=== PATIENT | male | born 1945 | race Caucasian/White ===

== ENCOUNTER 2017-05-28 06:30 | Day surgery (SDC) | payer MEDICARE, BC ==
[2017-05-26 10:21] VITALS: BMI 26.6
[~2017-05-28 06:30] MED LIST: LACTATED RINGERS 1,000 ML IV SCH; LIDOCAINE 1% 20 ML VIAL (10MG/ML) FOR IV START INTRADERMA PRN
[2017-05-28 06:48] VITALS: TEMP 97.9
[2017-05-28 06:51] LABS: Glucose,Whole Blood 106 mg/dL (75-99)
[2017-05-28] MEDS ORDERED: PROPOFOL 10 MG/ML 20 ML VIAL IV ONE (07:10)
--- NOTE | 2017-05-28 07:29 | P.PCN ---
Date of Procedure: 05/28/17 Preoperative Diagnosis: Postoperative Diagnosis: Procedure(s) Performed: BRIEF HISTORY: Patient is a 71-year-old pleasant white male, scheduled for an elective colonoscopy as a part of evaluation of intermittent rectal bleeding for the last 6 months duration. PROCEDURE PERFORMED: Colonoscopy. PREOPERATIVE DIAGNOSIS: Rectal bleeding. IV sedation per Anesthesia. PROCEDURE: After informed consent was obtained, the patient, was brought into the endoscopy unit. IV sedation was administered by Anesthesia under continuous monitoring. Digital rectal examination was normal. Initially the Olympus CF- 160 flexible video pediatric colonoscope was then inserted in the rectum, gradually advanced into the cecum without any difficulty. Careful examination was performed as the scope was gradually being withdrawn. Ileocecal valve and the appendiceal orifice were visualized and appeared normal. Prep was excellent. Mucosa of the cecum, ascending colon, transverse colon, descending colon, sigmoid colon, and rectum appeared normal. Diffuse diverticulosis noted throughout the entire colon but more predominant in the left colon. Retroflexion was performed in the rectum and small internal hemorrhoids were seen. The patient tolerated the procedure well. IMPRESSION: Normal-appearing colon from rectum to cecum with no evidence of colorectal neoplasia . Diffuse diverticulosis Small internal hemorrhoids. RECOMMENDATIONS: Findings of this examination were discussed with the patient as well as his family. He was advised to be a high-fiber diet, take fiber supplements on a regular basis and avoid straining and constipation. He can have a repeat screening colonoscopy in 10 years. Implants: Indications for Procedure: Operative Findings: Description of Procedure:
[2017-05-28 07:49] VITALS: RESP 16
[2017-05-28 08:03] VITALS: BP 133/79; PULSE 68
== END 2017-05-28 08:31 | disposition home or self-care (01) ==
LOC: ORWHC2ENDO 06:30
PROVIDERS: ATTEND Internal Medicine Gastroenterology
DX: K57.30 Diverticulosis of large intestine without perforation or abscess without bleeding (principal); K64.8 Other hemorrhoids; K21.9 Gastro-esophageal reflux disease without esophagitis; I10 Essential (primary) hypertension; E11.9 Type 2 diabetes mellitus without complications; Z79.84 Long term (current) use of oral hypoglycemic drugs; Z79.899 Other long term (current) drug therapy
CPT/HCPCS: 45378; J2704

== ENCOUNTER → 2021-08-06 | Outpatient (CLI) | payer MEDICARE ==
--- NOTE | 2021-08-06 14:31 | ECHOF ---
Referral Reason:R06.09 MEASUREMENTS -------- HEIGHT: 172.7 cm WEIGHT: 81.6 kg BP: IVSd: 1.0 cm (0.6 - 1.1) LVIDd: 4.4 cm (3.9 - 5.3) LVPWd: 1.0 cm (0.6 - 1.1) IVSs: 1.4 cm LVIDs: 3.3 cm LVPWs: 2.1 cm LAESV Index (A-L): 25.94 ml/m Ao Diam: 3.3 cm (2.0 - 3.7) AV Cusp: 1.8 cm (1.5 - 2.6) MV EXCURSION: 22.213 mm (> 18.000) MV EF SLOPE: 171 mm/s (70 - 150) EPSS: 0.5 cm MV E Justo: 0.94 m/s MV DecT: 247 ms MV A Justo: 1.06 m/s MV E/A Ratio: 0.88 RAP: 5.00 mmHg RVSP: 30.53 mmHg FINDINGS -------- Undetermined rhythm. This was a technically good study. The left ventricular size is normal. Left ventricular wall thickness is normal. Overall left vent ricular systolic function is mildly impaired with, an EF between 45 - 50 %. The right ventricle is normal in size. Normal LA size by volume 22+/-6 ml/m2. The right atrial size is normal. There is mild aortic valve sclerosis. There is no evidence of aortic regurgitation. Mild mitral annular calcification present. Mild mitral regurgitation is present. Mild tricuspid regurgitation present. Right ventricular systolic pressure is normal at < 35 mmHg. There is no pulmonic regurgitation present. There is no pericardial effusion. CONCLUSIONS -------- 1. The left ventricular size is normal. 2. Left ventricular wall thickness is normal. 3. Overall left ventricular systolic function is mildly impaired with, an EF between 45 - 50 %. 4. The right ventricle is normal in size. 5. Normal LA size by volume 22+/-6 ml/m2. 6. The right atrial size is normal. 7. There is mild aortic valve sclerosis. 8. Mild mitral annular calcification present. 9. Mild mitral regurgitation is present. 10. Mild tricuspid regurgitation present. 11. There is no pericardial effusion. LATHE TURNER: Bere Pulliam RDCS
--- NOTE | 2021-08-06 14:48 | CT ---
EXAMINATION TYPE: CT chest wo con DATE OF EXAM: 08/06/2021 COMPARISON: Prior chest x-ray February 15, 2014 HISTORY: Respiratory distress, breathing difficulty CT DLP: 584 mGycm. Automated Exposure Control for Dose Reduction was Utilized. TECHNIQUE: CT scan of the thorax is performed without IV contrast. FINDINGS: LUNGS: There is 2.9 cm thin-walled cyst or bleb in the lateral right lung base on axial image 48. Mil d central bronchiectasis without abnormal peribronchial wall thickening. No suspicious focal consolid ation or groundglass opacity. There is no pleural effusion or pneumothorax seen. The tracheobronchia l tree is patent. MEDIASTINUM: Lack of IV contrast is noted to limit evaluation for mediastinal and especially hilar ad enopathy. There are no definitive greater than 1 cm mediastinal lymph nodes. No cardiomegaly or per icardial effusion is seen. There is 2.3 cm right thyroid nodule axial image 4 which warrants follow-u p. Moderate to severe three-vessel coronary artery calcification and/or stents, correlate clinically. Prominent right and left pulmonary arteries, CT finding consistent with underlying pulmonary artery hypertension. Ectatic ascending aorta up to 3.9 cm axial image 27 OTHER: Large calculi within the gallbladder extending towards gallbladder neck without biliary dilata tion or surrounding inflammatory change. Immediately inferior and just lateral and posterior to this structure there is a 3.4 x 2.7 cm oval low dense structure suspect partially exophytic thin-walled cy st from the inferior right hepatic lobe as this does not appear to connect to the biliary system. Rob e cortical thinning in both kidneys. IMPRESSION: 1. Mild chronic changes without acute pulmonary process. 2. There is 2.3 cm right thyroid low dense nodule. Follow-up thyroid ultrasound is advised to better evaluate and characterize if this is not known finding. 3. 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 4. Multiple stones within gallbladder extending towards neck without CT evidence for acute cholecysti tis.
== END | disposition home or self-care (01) ==
LOC: RADCTMAIN 13:30
PROVIDERS: ATTEND Family Medicine
DX: I08.1 Rheumatic disorders of both mitral and tricuspid valves (principal); I77.810 Thoracic aortic ectasia
CPT/HCPCS: 71250; 93306

== ENCOUNTER → 2021-10-03 | Outpatient (CLI) | payer MEDICARE ==
--- NOTE | 2021-10-03 08:43 | US ---
EXAMINATION TYPE: US thyroid st tissue head/neck DATE OF EXAM: 10/03/2021 COMPARISON: CT 08/06/21 CLINICAL HISTORY: E04.2 NONTOXIC MULTINODULAR GOITER. GLAND SIZE: Right Lobe: 4.7x2.4x2.4 cm Overall Parenchyma: homogenous Left Lobe: 3.2x0.9x1.7 cm Overall Parenchyma: homogeneous Isthmus Thickness: 0.4 cm NODULES RIGHT: # of nodules measured on right: 1 1. 2.8 X 1.9 x 1.9 cm, mid lateral, solid or almost completely solid, hypoechoic nodule, which is w ider than tall, with smooth margins, without echogenic foci. LEFT: # of nodules measured on left: 1 1. 0.4 X 0.5 x 0.3 cm, mid mid, spongiform, hypoechoic nodule, which is wider than tall, with yee h margins, without echogenic foci. ISTHMUS: # of nodules measured in the isthmus: 0 Bilateral neck scanned, no evidence of lymphadenopathy. IMPRESSION: Bilateral thyroid nodules, as described. 2017 ACR TI-RADS LEVEL: TR-RADS 4 - Moderately Suspicious: Follow if > 1 cm, FNA if > 1.5 cm *Highest TI-RADS level nodule reported
[2021-10-03 09:45] LABS: T4, Free (Free Thyroxine) 1.14 ng/dL (0.78-2.19)
== END | disposition home or self-care (01) ==
LOC: RADUSWWP 07:35
PROVIDERS: ATTEND Internal Medicine Endocrinology, Diabetes & Metabolism
DX: E04.2 Nontoxic multinodular goiter (principal)
CPT/HCPCS: 36415; 76536; 84439; 84443

== ENCOUNTER → 2021-10-15 | Outpatient (CLI) | payer MEDICARE ==
--- NOTE | 2021-10-15 21:42 | CONS ---
CONSULTATION DATE OF SERVICE: 10/15/2021 This 75-year-old gentleman has been evaluated in Sleep Center for possible obstructive sleep apnea-hypopnea syndrome. HISTORY OF PRESENT ILLNESS/SLEEP-WAKE EVALUATION: Patient's usual sleep schedule is from 11 p.m. to 5 a.m. No problems with falling asleep. No TV in bedroom. According to the patient's , he snores and wakes up from sleep with nocturia. No history of hypnagogic hallucinations, sleep paralysis or cataplexy. [place] Sleepiness Scale is 5. The patient drinks one cup of coffee a day and usually does not take naps. The patient has restless leg symptoms and has cramps in his legs during sleep. PAST MEDICAL HISTORY: Positive for hypertension, hyperlipidemia, diabetes mellitus, acid reflux, prostate carcinoma. PAST SURGICAL HISTORY: Prostatectomy for prostate carcinoma. MEDICATIONS: 1. Pravastatin 40 mg once a day. 2. Hydrochlorothiazide/lisinopril 25 mg-20 mg once a day. 3. Nifedipine 60 mg once a day. 4. Klor-Con 20 mEq twice a day. 5. Metformin 1000 mg once a day. 6. Pioglitazone 30 mg once a day. 7. Vitamin D3 once a day. 8. Multivitamins. SOCIAL HISTORY: Negative for smoking. Alcohol consumption occasional. FAMILY HISTORY: Positive for sleep apnea in his family -- in his dad, sister and brother. Stroke. Arthritis. REVIEW OF SYSTEMS: Snoring awakenings from sleep. No fevers. No double vision. No recent chest pain. No shortness of breath. No abdominal pain. No bleeding episodes. No blood in the urine. No seizure episodes. PHYSICAL EXAMINATION: GENERAL APPEARANCE: Pleasant gentleman without distress. VITAL SIGNS: BP 115/76, HR 88, RR 15, height 5 feet 7-1/3 inches, weight 184.8 pounds, body mass index 29.1. Temperature 97.3. Oxygen saturation at room air 96%. HEENT: PERRLA, EOMI, evaluation of oropharynx showed tongue protrudes midline. Extremely low position of soft palate; Mallampati IV. NECK: Supple, no JVD. Thyroid is not palpable. Neck measures 16 inches in circumference. LUNGS: Clear to percussion and to auscultation. Good air exchange. No wheezing or rhonchi. HEART: S1, S2 regular. No murmurs, gallops, or rubs. ABDOMEN: Soft and nontender. Bowel sounds are present. No organomegaly appreciated. EXTREMITIES: No clubbing or cyanosis. DIGITAL PHOTOGRAPHER: Awake, alert, and oriented X3. Cranial nerves 2 to 7 intact. There is no fasciculation or atrophy. noted. No focal deficits observed. IMPRESSION: 1. Snoring, extremely low position of soft palate; possible obstructive sleep apnea- hypopnea syndrome. 2. Overweight, body mass index 29.1. 3. History of cramps in legs during the night; possibly periodic limb movements and restless leg symptoms. 4. Hypertension. 5. Diabetes mellitus. 6. Hyperlipidemia. 7. Acid reflux. 8. History of prostate carcinoma, status post prostatectomy. PLAN: 1. Polysomnography for evaluation of patient's breathing during sleep. 2. CPAP/BiPAP titration if sleep study confirms obstructive sleep apnea-hypopnea syndrome. 3. Preferable position during sleep on the side. 4. No driving if patient feels any sleepiness. 5. I will see patient for follow up visit to explain results of testing and following plan. Thank you very much for referring this patient for consultation. Sincerely, Juan Lopez MD, PhD, FAASM Diplomat of [employer] Sleep Medicine Board of [employer] [facility] [employer] [place] MMODL / VALN: [id number] /
== END ==
LOC: SLEEP 14:59
PROVIDERS: ATTEND Internal Medicine
DX: R06.83 Snoring (principal); E66.3 Overweight; I10 Essential (primary) hypertension; E11.9 Type 2 diabetes mellitus without complications; E78.5 Hyperlipidemia, unspecified; K21.9 Gastro-esophageal reflux disease without esophagitis; Z85.46 Personal history of malignant neoplasm of prostate; Z68.29 Body mass index [BMI] 29.0-29.9, adult; Z90.79 Acquired absence of other genital organ(s); Z79.84 Long term (current) use of oral hypoglycemic drugs; Z79.899 Other long term (current) drug therapy
CPT/HCPCS: 99211

== ENCOUNTER → 2022-06-04 | Outpatient (CLI) | payer MEDICARE ==
--- NOTE | 2022-06-04 15:45 | P.PN ---
Subjective DATE: 06/04/2022 FOLLOW UP VISIT. Patient with obstructive sleep apnea hypopnea syndrome return to sleep center for follow-up visit. Information from previous visit have been reviewed. During previous visit apnea-hypopnea index reading from the machine significantly increased to 12.8, including central index of 7.3 and machine indicate possibility of Ehsan-Winn respiration for 7% of the time. Patient is using PAP equipment every night for the whole night, getting PAP supplies in time. The patient does have significant problems with the mask, exhale port on the mask aloud air goes to the eye area. [place] sleepiness scale is 6. I checked information from PAP unit. PAP unit pressure 518, average 11.2 cm H2O. Usage is 100% and 80 % for more then 4 hours, average 5 follow-up 5 hours 17 minutes per night. Leak is 15.4 l/m, which is in acceptable range. Apnea Hypopnea Index is reduced: comparing with a previous visit to 5.0, which is normal. MEDICATIONS:1. Pravastatin 40 mg once a day 2. Hydrochlorothiazide lisinopril once a day 3. Nifedipin 60 mg once a day 4. Metformin 1000 mg once a day 5. Pioglitazone 30 mg once a day During physical exam: GENERAL: A pleasant patient without any distress. VITAL SIGNS: BP 113/69, HR 72, RR 14 , weight 180.4, temperature 97.1, oxygen saturation at room air 97 % . HEENT: PERRLA, EOMI.low position of soft palate, Mallapati[ 4] . NECK: Supple. No JVD. LUNGS: Clear to percussion and to auscultation. Good air exchange. No wheezing or rhonchi. HEART: S1, S2 regular. ABDOMEN: Soft and nontender. EXTREMITIES: No clubbing or cyanosis. PATHOLOGY COLLECTOR: Awake, alert, and oriented x3. No focal deficit. Impressions: 1. Obstructive and central sleep apnea-hypopnea syndrome. Patient demonstrated great compliance with treatment, benefiting from treatment. Improvements of respiration on CPAP comparing with previous visit. 2. Hypertension. 3. Diabetes mellitus. 4. History of cramps in the legs. 5. . Hyperipidemia. 6. Acid Reflux. 7. H/o prostate carcinoma, status post prostatectomy. Plan: 1. Continue using PAP equipment every night for the whole night. 2. To change air filter at least 1-2 times per month. 3. PAP unit should stay lower then position of the head. 4. Advised patient to remove all remaining water from humidifier canister daily and make it dry after each usage. Refill canister with fresh distilled water before each usage. 5. Sleep hygiene with regular time in bed for at least 8 hours. 6. Precautions related to driving. No driving if feel any sleepiness. 7. I will maintain prescription for PAP supplies including mask, tube, filters. 8. Follow up visit in 6 months or earlier if patient has any problems. 9. Watching weight. Thank you very much for allowing me to participate in the management of your patient. Juan Lopez MD, PhD, FAASM. Diplomat of [employer], Sleep Medicine Board by [employer] [facility] [place] [facility] [place]
== END ==
LOC: SLEEP 10:19
PROVIDERS: ATTEND Internal Medicine
DX: G47.33 Obstructive sleep apnea (adult) (pediatric) (principal); G47.31 Primary central sleep apnea; I10 Essential (primary) hypertension; E11.9 Type 2 diabetes mellitus without complications; Z99.89 Dependence on other enabling machines and devices; E78.5 Hyperlipidemia, unspecified; K21.9 Gastro-esophageal reflux disease without esophagitis; Z85.46 Personal history of malignant neoplasm of prostate; Z90.79 Acquired absence of other genital organ(s); Z79.84 Long term (current) use of oral hypoglycemic drugs

== ENCOUNTER → 2022-06-19 | Outpatient (CLI) | payer MEDICARE ==
--- NOTE | 2022-06-19 14:59 | US ---
EXAMINATION TYPE: US thyroid st tissue head/neck DATE OF EXAM: 06/19/2022 COMPARISON: US CLINICAL HISTORY: E04.1 THYROID NODULE. Thyroid nodule. Hx FNA. GLAND SIZE: Right Lobe: 4.2 x 2.0 x 2.1 cm Overall Parenchyma: homogenous Left Lobe: 3.8 x 1.3 x 1.6 cm Overall Parenchyma: homogeneous Isthmus Thickness: 0.21 cm NODULES RIGHT: # of nodules measured on right: 1 1. 2.8 X 1.8 x 1.7 cm, mid-lower mid, solid or almost completely solid, hypoechoic nodule, which is wider than tall, with smooth margins, without echogenic foci. TR 4 Prior size: 2.8 x 1.8 x 1.7 cm LEFT: # of nodules measured on left: 2 1. 0.6 X 0.6 x 0.4 cm, mid mid, solid or almost completely solid, hypoechoic nodule, which is wider than tall, with smooth margins, without echogenic foci. Prior size: Cannot definitely correlate. 2. 0.6 X 0.7 x 0.4 cm, mid mid, mixed cystic and solid, nodule, which is wider than tall, with smo oth margins, with echogenic foci. Prior size: Cannot definitely correlate. ISTHMUS: # of nodules measured in the isthmus: 0 Bilateral neck scanned, no evidence of lymphadenopathy. IMPRESSION: 1. Moderately suspicious nodule right lobe thyroid. Fine-needle aspiration recommended. 2017 ACR TI-RADS LEVEL: TR-RADS 4 - Moderately Suspicious: Follow if > 1 cm, FNA if > 1.5 cm *Highest TI-RADS level nodule reported
== END | disposition home or self-care (01) ==
LOC: RADUSWWP 13:36
PROVIDERS: ATTEND Internal Medicine Geriatric Medicine
DX: E04.1 Nontoxic single thyroid nodule (principal)
CPT/HCPCS: 76536

== ENCOUNTER → 2023-11-18 | Outpatient (CLI) | payer MEDICARE ==
--- NOTE | 2023-11-20 18:38 | US ---
EXAMINATION TYPE: US thyroid st tissue head/neck DATE OF EXAM: 11/18/2023 COMPARISON: US 06/19/2022 CLINICAL INDICATION: Male, 78 years old with history of E04.2 NONTOXIC MULTINODULAR GOITER; Goiter, h x FNA. GLAND SIZE: Right Lobe: 4.3 x 2.0 x 2.2 cm Overall Parenchyma: homogeneous Left Lobe: 3.8 x 1.2 x 1.5 cm Overall Parenchyma: homogeneous Isthmus Thickness: 0.20 cm NODULES RIGHT: # of nodules measured on right: 1 1. 2.8 X 1.8 x 1.8 cm, mid-inf mid, Prior size: 2.8 x 1.8 x 1.7 cm TIRADS Score: 4 TIRADS Category 4: Composition: Solid or almost completely solid (2 points). Echogenicity: Hypoechoic (2 points). Shape: Wider than tall (0 points). Margin: Smooth (0 points). Echogenic foci: None or large comet-tail artifacts (0 points) Recommendation: If >1.5cm: FNA; If >1cm: Follow up at 1,2, 3,5 years LEFT: # of nodules measured on left: 2 1. 0.6 X 0.6 x 0.4 cm, mid mid, Prior size: 0.6 x 0.6 x 0.4 cm TIRADS Score: 4 TIRADS Category 4: Composition: Solid or almost completely solid (2 points). Echogenicity: Hypoechoic (2 points). Shape: Wider than tall (0 points). Margin: Smooth (0 points). Echogenic foci: None or large comet-tail artifacts (0 points) Recommendation: If >1.5cm: FNA; If >1cm: Follow up at 1,2, 3,5 years 2. 0.6 X 0.6 x 0.4 cm, mid mid, Prior size: 0.6 x 0.7 x 0.4 cm TIRADS Score: 5 TIRADS Category 4: Composition: Mixed cystic and solid (1 point). Echogenicity: Hypoechoic (2 points). Shape: Wider than tall (0 points). Margin: Smooth (0 points). Echogenic foci: None or large comet-tail artifacts (0 points) Peripheral (rim) calcifications (2 points) Recommendation: If >1.5cm: FNA; If >1cm: Follow up at 1,2, 3,5 years ISTHMUS: # of nodules measured in the isthmus: 0 Bilateral neck scanned, no evidence of lymphadenopathy. IMPRESSION: Bilateral thyroid nodules. Right thyroid nodule measuring up to 2.8 cm each criteria for biopsy of th yroid performed.
== END | disposition home or self-care (01) ==
LOC: RADUSWWP 14:22
PROVIDERS: ATTEND Internal Medicine Endocrinology, Diabetes & Metabolism
DX: E04.2 Nontoxic multinodular goiter (principal)
CPT/HCPCS: 76536

== ENCOUNTER → 2024-12-11 | Outpatient (CLI) | payer MEDICARE | END | disposition home or self-care (01) | LOC: LABWHC1 11:03 | PROVIDERS: ATTEND Urology | DX: C61 Malignant neoplasm of prostate (principal) | CPT/HCPCS: 36415; 84153 ==